=== PATIENT | male | born 1995 | race Caucasian/White ===

== ENCOUNTER 2018-10-10 17:59 | Emergency (ER) | payer OTHER ==
[2018-10-10] MEDS ORDERED: SEPTDS PO (19:30)
[2018-10-10] MEDS ORDERED: CEPHALEXIN500 M1 PO (19:30)
== END 2018-10-10 19:33 | disposition home or self-care (01) ==
LOC: ED 17:59
DX: L03.114 Cellulitis of left upper limb (principal); Z88.1 Allergy status to other antibiotic agents